=== PATIENT | male | born 1970 | race Caucasian/White ===

== ENCOUNTER 2018-11-13 10:29 | Emergency (ER) | payer SELFPAY ==
[~2018-11-13] VITALS: Ht 167.6 cm; Wt 73.1 kg
[2018-11-13 10:31] VITALS: BP 134/87
[2018-11-13] MEDS ORDERED: KETOROLAC 30 MG/1 ML IM ONE (11:00)
[2018-11-13] MEDS ORDERED: KETOROLAC 30 MG/1 ML ONE (11:03)
== END 2018-11-13 12:27 | disposition home or self-care (01) ==
LOC: ED 12:20
DX: M25.511 Pain in right shoulder (principal); F17.200 Nicotine dependence, unspecified, uncomplicated
CPT/HCPCS: 73030; 96372; 99283; J1885